=== PATIENT | female | born 1975 | race Two or more races ===

== ENCOUNTER 2018-12-05 09:00 | Inpatient (IN) | payer OTHER ==
[~2018-12-05] VITALS: Ht 154.9 cm; Wt 77.1 kg
== END 2018-12-11 09:08 | disposition home or self-care (01) | DRG 743 ==
LOC: O/R 12-09 07:05 → OB/GYN 12-09 07:05 → EDBD 12-09 09:00 → SURH 12-09 09:00 → OB/GYN 12-09 19:30
PROVIDERS: ADMIT Obstetrics & Gynecology Gynecologic Oncology
PROC: 0UT00ZZ Resection of Right Ovary, Open Approach (ICD-10-PCS; 2018-12-09)
PROC: 0D5U0ZZ Destruction of Omentum, Open Approach (ICD-10-PCS; 2018-12-09)
PROC: 0WJH0ZZ Inspection of Retroperitoneum, Open Approach (ICD-10-PCS; 2018-12-09)
PROC: 0UT90ZZ Resection of Uterus, Open Approach (ICD-10-PCS; principal; 2018-12-09 09:30)
DX: D27.0 Benign neoplasm of right ovary (principal)

== ENCOUNTER 2018-12-06 11:59 | Outpatient (CLI) | payer OTHER | END 2018-12-06 12:10 | disposition home or self-care (01) | LOC: LAB 11:59 | DX: J11.1 Influenza due to unidentified influenza virus with other respiratory manifestations (principal); B34.8 Other viral infections of unspecified site ==